=== PATIENT | female | born 1995 | race American Indian/Alaskan Native ===

== ENCOUNTER 2016-09-21 17:39 | Emergency (ER) | payer BC ==
[2016-09-21 17:56] VITALS: BP 146/85
[2016-09-21] MEDS ORDERED: TYLENOL PO ONE (17:56)
[2016-09-21] MEDS ORDERED: TYLENOL ONE (17:56)
== END 2016-09-22 00:54 | disposition left against medical advice (07) ==
LOC: ED 17:39
DX: J11.1 Influenza due to unidentified influenza virus with other respiratory manifestations (principal); R05 Cough; M79.1 Myalgia; Z53.21 Procedure and treatment not carried out due to patient leaving prior to being seen by health care provider